=== PATIENT | female | born 1935 | race Caucasian/White ===

== ENCOUNTER 2016-12-25 13:11 | Emergency (ER) | payer MEDICARE, OTHER ==
[2016-12-25 12:10] LABS: BASOPHILS 0.2 %; BASOPHILS ABSOLUTE 0.02 10/3/uL (0.0-0.16); EOSINOPHILS 0.6 %; EOSINOPHILS ABSOLUTE 0.05 10/3/uL (0.0-0.53); ER CBC TAT 0 Hrs 11 Mins; HEMOGLOBIN 14.5 g/dL (12.0-16.0); IMMATURE GRANULOCYTES 0.2 %; IMMATURE GRANULOCYTES ABSOLUTE 0.02 10/3/uL (0.0-0.11); LYMPHOCYTES 10.9 %; LYMPHOCYTES ABSOLUTE 0.94 10/3/uL (0.67-4.30); MEAN CORPUS HGB CONC 35.4 g/dL (32.0-36.0); MEAN CORPUSCULAR HEMOGLOB 32.5 pg (26.0-34.0); MEAN CORPUSCULAR VOLUME 91.9 fL (80-100); MEAN PLATELET VOLUME 9.5 fL (9.2-13.0); MONOCYTES 8.4 %; MONOCYTES ABSOLUTE 0.72 10/3/uL (0.21-1.20); NEUTROPHILS 79.7 %; NEUTROPHILS ABSOLUTE 6.87 10/3/uL (2.02-8.40); PLATELET COUNT 176 10/3/uL (150-400); RBC DISTRIBUTION WIDTH 13.3 % (12.0-16.0); RED CELL COUNT 4.46 10/6/uL (4.0-5.6); WHITE BLOOD CELLS 8.6 10/3/uL (4.5-10.5)
[2016-12-25 12:11] LABS: MANUAL DIFF NO %
[2016-12-25 12:25] LABS: A/G RATIO 1.2 (0.7-1.9); ALBUMIN 3.6 G/DL (3.5-5.0); ALKALINE PHOSPHATASE 57 U/L (45-117); BUN (BLOOD UREA NITROGEN) 12 MG/DL (6-23); CALCIUM, SERUM 9.2 MG/DL (8.5-10.4); CHLORIDE, SERUM 96 MMOL/L (96-112); CO2 (CARBON DIOXIDE) 27 MMOL/L (24-34); CREATININE 0.66 MG/DL (0.55-1.02); GFR AFRICAN AMERICAN 96 ML/MIN (>=60); GFR NON AFRICAN AMERICAN 83 ML/MIN (>=60); GLOBULIN 3.1 G/DL (2.5-4.1); POTASSIUM, SERUM 4.2 MMOL/L (3.5-5.3); SGOT(AST) 27 U/L (5-40); SGPT(ALT) 21 U/L (5-65); SODIUM, SERUM 132 MMOL/L (135-148); TOTAL BILIRUBIN 0.5 MG/DL (0-1.2); TOTAL PROTEIN 6.7 G/DL (6.0-8.5)
[2016-12-25 12:26] LABS: GLUCOSE, SERUM 130 MG/DL (60-99)
[~2016-12-25 13:11] MED LIST: ADVIL PO; BONIVA150 MG PO; CALTRA600D PO; ENBREL50 MG/M1 SC; ESTER-C PO; ESTER-C500 MG PO; EYECAPS PO; FOLIC PO; IRON325 MG PO; KLONO5 PO; LEVOTHYROXIN25 MCG PO; ORENCIA IV; OS500 PO; P5 PO; PRILO PO; RECLAST IV; SYN.05 PO; VITAMIN B-122500 MCG PO; VITAMIN B-122500 MCG SL; VITAMIN C100 MG PO
== END 2016-12-25 14:31 | disposition home or self-care (01) ==
LOC: ER 13:11
PROVIDERS: Emergency Medicine
DX: R11.2 Nausea with vomiting, unspecified (principal); R19.7 Diarrhea, unspecified; Z79.52 Long term (current) use of systemic steroids; Z79.899 Other long term (current) drug therapy
CPT/HCPCS: 80053; 83690; 85025; 87328; 87329; 87493; 87493-59; 89055; 93005; 96374; 99284; J2405